=== PATIENT | female | born 1990 | race Caucasian/White ===

== ENCOUNTER 2016-10-16 18:15 | Observation (INO) | payer OTHER ==
[2016-10-16] MEDS ORDERED: Ondansetron 4 MG/2 ML SDV IV PRN (19:22)
[2016-10-16] MEDS ORDERED: Acetaminophen 325 MG Tab PO PRN (19:22)
[2016-10-16] MEDS ORDERED: Lactated Ringers 1,000 ML IV SCH (19:22)
[2016-10-16] MEDS ORDERED: Pantoprazole 40 MG Vial IVPUSH SCH (19:22)
[2016-10-16] MEDS ORDERED: Ketorolac 30 MG/ML SDV IVPUSH PRN (19:22)
[2016-10-16] MEDS ORDERED: HYDROmorphone 1 MG/ML Syringe IVPUSH PRN (19:22)
--- NOTE | 2016-10-16 19:22 | EDM.PDOC ---
ED HPI GENERAL MEDICAL PROBLEM - General Chief Complaint: General Stated Complaint: lethargic, weakness Time Seen by Provider: 10/16/16 18:40 Source of Information: Reports: Patient, Family (mother) History Limitations: Reports: No limitations - History of Present Illness INITIAL COMMENTS - FREE TEXT/NARRATIVE: Latia is a 26 yo female who presents to the ER via private vehicle with complaints of abdominal pain and vomiting. Was in to see Dr. Rodrigues this afternoon in clinic and underwent multiple laboratory tests and a CT scan of the abdomen/pelvis. She states everything looked okay and Dr. Rodrigues recommended admitting her for IV fluids as she isn't able to keep anything down. States her last meal was yesterday afternoon around 1500 hrs. She states she then took a nap and woke up not feeling well. Around 2300hrs last night she started vomiting. States she has been vomiting frequently ever since. Admits she did come back in to clinic for a shot of Rocephin. Dr. Rodrigues had sent her home with a prescription for Ceftin, which they didn't make it to the pharmacy in time to fill. She states she has had two loose stools last night and today. States the pain is generalized and is experiencing a lot of cramping. Periods have been normal and she feels she should be getting it again next week sometime. Has been drinking water all day but admits it makes her nauseated. Onset: today Duration: Constant, Waxing/waning Location: Reports: abdomen Severity: moderate Associated Symptoms: Reports: diaphoresis, fever/chills, loss of appetite, malaise, nausea/vomiting Lower Back Pain Score (Numeric/FACES): 7 - Related Data Allergies Allergy/AdvReac Type Severity Reaction Status Date / Time No Known Allergies Allergy Verified 10/16/16 18:41 Home Meds: Home Meds Nuvaring 1 applic VAG Q30D 10/16/16 [History] Past Medical History - Past Health History Medical/Surgical History: Denies Medical/Surgical History Social & Family History - Tobacco Use Smoking Status *Q: Never Smoker - Caffeine Use Caffeine Use: Reports: None - Recreational Drug Use Recreational Drug Use: No ED ROS GENERAL - Review of Systems Review Of Systems: See Below Constitutional: Reports: fever, chills, malaise, weakness, decreased appetite HEENT: Reports: No symptoms Respiratory: Reports: No Symptoms Cardiovascular: Reports: No symptoms GI/Abdominal: Reports: Abdominal pain, Diarrhea, Nausea, Vomiting. Denies: Black stool, Bloody stool, Constipation, Hematemesis, Hematochezia, Melena, Stool incontinence : Reports: no symptoms Neurological: Reports: No Symptoms Psychiatric: Reports: No symptoms ED EXAM, GENERAL - Physical Exam Exam: See Below Exam Limited By: No limitations General Appearance: alert, mild distress, moderate distress Ears: normal external exam, normal canal, hearing grossly normal, normal TMs Nose: normal inspection, no blood Throat/Mouth: Normal inspection, Normal lips, Normal teeth, Normal oropharynx, Normal voice, No airway compromise Head: atraumatic, normocephalic Neck: normal inspection, supple, non-tender Respiratory/Chest: no respiratory distress, lungs clear, normal breath sounds Cardiovascular: normal peripheral pulses, regular rate, rhythm, no edema, no murmur GI/Abdominal: soft, tender, abnormal bowel sounds: (hyperactive). No: distended , guarding, rigid, mass, hepatomegaly, splenomegaly Extremities: normal inspection, normal capillary refill Neurological: alert, oriented, no motor/sensory deficits Psychiatric: normal affect, normal mood Skin Exam: Dry, Intact, Normal color, No rash, Increased warmth Course - Vital Signs Last Recorded V/S: Last Vital Signs Temp 100.0 F 10/16/16 18:50 Pulse 95 10/16/16 18:50 Resp 18 10/16/16 18:50 BP 107/60 10/16/16 18:50 Pulse Ox 100 10/16/16 18:50 - Orders/Labs/Meds Orders: Medication Orders Non-Formulary Medication (Nuvaring) 1 applic VAG Q30D [facility] Meds: Medications Generic Name Dose Route Start Last Admin Trade Name Freq PRN Reason Stop Dose Admin Non-Formulary Medication 1 applic 10/16/16 19:30 Nuvaring VAG Q30D [facility] Departure - Departure Time of Disposition: 19:23 Disposition: Refer to Observation Condition: good Clinical Impression: Gastroenteritis - Problem List & Annotations (1) Gastroenteritis SNOMED Code(s): 21331877 Code(s): K52.9 - NONINFECTIVE GASTROENTERITIS AND COLITIS, UNSPECIFIED Status: Acute Current Visit: Yes - Problem List Review Problem List Initiated/Reviewed/Updated: Yes - Assessment/Plan Admission H&P: Please use this note as an admission H&P Plan: Reviewed laboratory work and CT scan of the abdomen/pelvis tonight. No acute findings noted. Consulted with Dr. Rodrigues and will admit to observation under his care. Dr. Rodrigues agreed with admission at this time. Will give IV fluids thru the night. All questions by family were answered and both mother and daughter verbalized understanding of admission. Latia was transferred to floor in satisfactory condition.
[2016-10-16] MEDS: NUVARING VAG SCH ×2 (20:15→23:37)
[2016-10-16] MEDS: Lactated Ringers 1,000 ML IV SCH (20:52)
[2016-10-17] MEDS: Lactated Ringers 1,000 ML IV SCH (04:46)
[2016-10-17 07:44] LABS: CHLORIDE,CL 107 mEq/L (98-106); SODIUM,NA 141 mEq/L (136-145)
[2016-10-17 08:57] VITALS: BP 109/70
[2016-10-17] MEDS ORDERED: cefTRIAXone 1 GM Vial IVPUSH ONE (09:00)
--- NOTE | 2016-10-18 07:03 | DISCH ---
HOSPITAL COURSE: Latia Finch, I have seen in the clinic yesterday with a diagnosis of mesenteric adenitis and abdominal pain. I wanted to admit her because she was dehydrated and C-reactive protein elevated, but she refused to do a CT scan of the abdomen and looked okay, then came in to the ER last night with severe pain, admitted by Moreno Mclain, given IV fluids. She already had the Rocephin IM in the clinic. PHYSICAL EXAMINATION: NECK: This morning, neck was supple. CHEST: Clear. CARDIAC: Regular. ABDOMEN: Soft. Bowel sounds were good. LABS: This morning, C-reactive protein up a little bit, but that is probably just following the infection. DISPOSITION: The patient now discharged home. We will see her back in the clinic. She has Ceftin as an outpatient already. DISCHARGE MEDICATIONS: Ceftin 250 p.o. b.i.d., control. DISCHARGE DIAGNOSIS: MESENTERIC ADENITIS. MARGARETH /[id number]
== END 2016-10-17 09:45 | disposition home or self-care (01) ==
LOC: CC.ED 18:15 → UNDOADMOB 18:45 → CC.MS 18:45
PROVIDERS: ADMIT Physician Assistant Medical; ATTEND General Practice
DX: K52.9 Noninfective gastroenteritis and colitis, unspecified (principal); R10.9 Unspecified abdominal pain
CPT/HCPCS: 36415; 74020; 74177; 80048; 80053; 81001; 82150; 84703; 85025; 86140; 96361; 96374; 96375; 99284; A9270; C9113; G0378; J0696; J1170; J2405; J7120; Q9967

== ENCOUNTER → 2022-10-12 | Day surgery (SDC) | payer BC ==
[~2022-10-12] MED LIST: Lidocaine 1% 5 ML VIAL ONE; Lidocaine 1% w/EPINEPHrine 100 ML, Sodium Chloride 0.9% 900 ML, Sodium Bicarbonate 10 MEQ INJECT ONE
[2022-10-12] MEDS: Lidocaine 1% 5 ML VIAL INJECT ONE ×2 (15:42→16:17)
[2022-10-12 18:21] VITALS: BP 112/73; PULSE 92
== END ==
LOC: CC.SDS 14:46
PROVIDERS: ATTEND Family Medicine
DX: I83.813 Varicose veins of bilateral lower extremities with pain (principal); I87.2 Venous insufficiency (chronic) (peripheral); F41.8 Other specified anxiety disorders; K21.9 Gastro-esophageal reflux disease without esophagitis; Z79.899 Other long term (current) drug therapy
CPT/HCPCS: 36475; A4216; J3490